=== PATIENT | female | born 1945 | race Caucasian/White ===

== ENCOUNTER 2023-01-16 08:54 | Inpatient (IN) ==
[2023-01-16] MEDS ORDERED: fentaNYL 100 mcg/2 ml 50 MCG/ML VIAL IV SLOW PU ONE ×3 (09:39→11:47)
[2023-01-16] MEDS ORDERED: Midazolam 10 mg/10 ml VIAL 1 mg/ml 10 ml VIAL (10 mg) IV SLOW PU ONE (09:45)
[2023-01-16] MEDS ORDERED: Naloxone 0.4 mg VIAL 0.4 mg/ml 1 ml VIAL IV PUSH ONE (09:47)
[2023-01-16] MEDS ORDERED: Flumazenil 0.5 mg/5 ml 0.1 MG/ML 5 ml VIAL IV ONE (09:48)
[2023-01-16] MEDS ORDERED: Propofol 10 MG/ML 20 ML BTL IV PUSH ONE (10:45)
[2023-01-16] MEDS ORDERED: diazePAM INJ CARPUJECT 5 MG/ML SYRINGE IV ONE (12:19)
[2023-01-16] MEDS ORDERED: Ondansetron 4 mg VIAL 2 MG/ML 2 ml VIAL IV PRN (12:54)
[2023-01-16] MEDS ORDERED: Naloxone 0.4 mg VIAL 0.4 mg/ml 1 ml VIAL IV PRN (12:54)
[2023-01-16] MEDS ORDERED: fentaNYL 100 mcg/2 ml 50 MCG/ML VIAL IV PRN (12:54)
[2023-01-16] MEDS ORDERED: fentaNYL 100 mcg/2 ml 50 MCG/ML VIAL ONE ×2 (13:09→13:14)
[2023-01-16] MEDS ORDERED: Midazolam 2 mg/2 ml VIAL 1 mg/ml 2 ml VIAL (2 mg) ONE (13:10)
[2023-01-16] MEDS ORDERED: Lidocaine 2% PF 5 ML VIAL ONE (13:10)
[2023-01-16] MEDS ORDERED: Propofol 10 MG/ML 20 ML BTL ONE (13:10)
[2023-01-16] MEDS ORDERED: Ketamine HCL 50 mg/ml 10 ml VIAL (500 MG) ONE (13:10)
[2023-01-16] MEDS ORDERED: Succinylcholine 200 mg VIAL 20 mg/ml 10 ml VIAL (200 mg) ONE (13:11)
[2023-01-16] MEDS ORDERED: Senna TAB 8.6 mg TAB PO PRN (13:37)
[2023-01-16] MEDS ORDERED: Polyethylene Glycol 3350 17 GM PACKET PO PRN (13:37)
[2023-01-16] MEDS: oxyCODONE/Acetamin 5/325 mg TAB PO PRN ×2 (14:07→14:10)
[2023-01-16] MEDS ORDERED: oxyCODONE/Acetamin 5/325 mg TAB ONE (14:07)
[2023-01-16] MEDS ORDERED: Magnesium Hydroxide LIQ 30 ML UDC PO PRN (19:17)
[2023-01-16] MEDS ORDERED: Enoxaparin 40 MG/0.4 ML SYR SUBCUT SCH (20:00)
[2023-01-16] MEDS: Acetaminophen IV 1 GM/100ML 1,000 MG/100 ML BAG IV PRN (21:43)
[2023-01-17] MEDS: Acetaminophen IV 1 GM/100ML 1,000 MG/100 ML BAG IV PRN (09:58)
[2023-01-17] MEDS ORDERED: Enoxaparin 40 MG/0.4 ML SYR SUBCUT SCH (20:00)
[2023-01-17 21:48] LABS: Urine Appearance Cloudy; Urine Bilirubin Negative (Negative); Urine Blood 2+ (Negative); Urine Color Yellow; Urine Glucose Negative (Negative); Urine Ketones Negative (Negative); Urine Nitrite Positive (Negative); Urine Protein Negative (Negative); Urine Specific Gravity 1.013 (1.002-1.030); Urine Urobilinogen Negative (Negative)
[2023-01-17 21:55] LABS: Urine Bacteria 1+ (Absent); Urine Red Blood Cell 3+(>10/hpf) (Absent); Urine Squamous Epithelial Cell Present (Absent); Urine White Blood Cell 3+(>20/hpf) (Absent); Urine Yeast Present (Absent)
[2023-01-18 06:47] LABS: Hematocrit 35.8 % (35-45); Hemoglobin 12.1 g/dL (11.5-14.3); Mean Corpuscular Hemoglobin 28.9 pg (27-33); Mean Corpuscular Hgb Conc 33.8 g/dL (31-36); Mean Corpuscular Volume 85.5 fL (80-97); Mean Platelet Volume 9.9 fL (7.5-11.2); Platelet Count 214 10^3/uL (150-450); Red Blood Count 4.18 10^6/uL (3.63-4.92); Red Cell Distribution Width 13.6 % (12-17); White Blood Count 9.8 10^3/uL (3.8-11.8)
[2023-01-18 07:06] LABS: Calcium 8.4 mg/dL (8.6-10.3); Creatinine, Serum 0.79 mg/dL (0.51-0.95); Magnesium 2.2 mg/dL (1.9-2.7); Phosphorus 2.9 mg/dL (2.5-5.0); Potassium 3.9 mmol/L (3.5-5.0)
[2023-01-18 07:50] LABS: Albumin 3.5 g/dL (3.2-5.2)
[2023-01-18 11:07] VITALS: BP 119/62
== END 2023-01-18 14:13 | disposition home health service (06) | DRG 482 ==
LOC: ED 08:54 → AA 12:52 → SUATTDRO 13:37 → AA 13:37 → SSU 16:48
PROVIDERS: ADMIT Hospitalist; ATTEND Internal Medicine